=== PATIENT | male | born 1970 | race Caucasian/White ===

== ENCOUNTER 2017-01-04 14:56 | Emergency (ER) | payer BC ==
--- NOTE | ~2017-01-04 | CR172 ---
[facility] A Service of [facility] & [facility] RADIOLOGY TEXT RESULTS PATIENT: TIMOTHY YOST LOCATION: [facility] : 66 UNIT #: [id number] AGE: [address]: Debbie Stoddard SEX: M ORDER DR: [id number] [facility] [address] [place], [place] [address] [id number] MR#: [id number] Acc #: [id number] NAME: TIMOTHY YOST. : 1970 SEX: M STUDY DATE/TIME: 01/04/2017 15:38 UNIT: [facility] ROOM: STUDY DESCRIPTION: CR Knee 3 Views Lt Attending Physician: Debbie Stoddard P.A.-C. Ordering Physician: Debbie Stoddard P.A.-C. Primary Care Physician: Killian Gupta M.D. MEDICAL IMAGING REPORT This report is preliminary unless electronic signature is present EXAM Left knee series, 01/04/17. HISTORY Trauma. Hit knee on door, medial knee pain that radiates anteriorly. Medial knees swelling. Symptoms began today. FINDINGS AP, lateral, sunrise views of the left knee are presented. There is no traumatic fracture or malalignment. The joint spaces are intact. No joint effusion. Soft tissue swelling prepatellar and suprapatellar region. Probably more pronounced medially than laterally. Findings likely reflect combination of contusion and edema. There is no soft tissue defect, subcutaneous air or radiodense foreign body. There are atherosclerotic arterial calcifications. Greater than anticipated for patient of this age. Correlate with any risk factors for accelerated atherosclerosis. Dictated by... Brock Pineda M.D. THIS IS AN ELECTRONICALLY VERIFIED REPORT Brock Pineda M.D. at 01/10/2017 10:15 AM ARELIS/barbara TD: 01/04/2017 16:34 JOB #: [id number] MEDICAL IMAGING REPORT Page 1 of 1 COPY
== END 2017-01-04 16:27 | disposition home or self-care (01) ==
LOC: CED 14:56 → CFTX 14:56 → CED 16:27 → CFTX 16:27
DX: S83.92XA Sprain of unspecified site of left knee, initial encounter (principal); I10 Essential (primary) hypertension; F17.210 Nicotine dependence, cigarettes, uncomplicated; W22.8XXA Striking against or struck by other objects, initial encounter; Y92.098 Other place in other non-institutional residence as the place of occurrence of the external cause
CPT/HCPCS: 29505; 73562; 99283